=== PATIENT | female | born 1975 | race African-American/Black ===

== ENCOUNTER 2023-01-08 23:48 | Emergency (ER) | payer MEDICAID ==
[~2023-01-08] VITALS: Ht 167.6 cm; Wt 91.0 kg
[2023-01-08 23:54] VITALS: BP 148/87; PULSE 85; RESP 18; TEMP 98.8; O2SAT 100
== END 2023-01-09 02:13 | disposition home or self-care (01) ==
LOC: ER 01-09 01:46
DX: R60.9 Edema, unspecified (principal); Z68.32 Body mass index [BMI] 32.0-32.9, adult
CPT/HCPCS: 71045; 99283